=== PATIENT | male | born 1945 | race Caucasian/White ===

== ENCOUNTER 2024-02-12 12:51 | Outpatient (RCR) | payer MEDICARE, OTHER, SELFPAY | END 2024-02-12 23:59 | disposition home or self-care (01) | LOC: RPT 12:51 | PROVIDERS: ATTENDING PHYSICIAN Family Medicine | DX: I89.0 Lymphedema, not elsewhere classified (principal); M62.81 Muscle weakness (generalized); R26.2 Difficulty in walking, not elsewhere classified; Z91.81 History of falling; Z73.6 Limitation of activities due to disability | CPT/HCPCS: 97110; 97140; 97163; 97530 ==

== ENCOUNTER 2024-02-21 15:06 | Outpatient (RCR) | payer MEDICARE, OTHER, SELFPAY | END 2024-02-21 23:59 | disposition home or self-care (01) | LOC: RPT 15:06 | PROVIDERS: ATTENDING PHYSICIAN Family Medicine | DX: I89.0 Lymphedema, not elsewhere classified (principal); Z73.6 Limitation of activities due to disability; I69.354 Hemiplegia and hemiparesis following cerebral infarction affecting left non-dominant side | CPT/HCPCS: 97110; 97140; 97530 ==

== ENCOUNTER → 2024-05-11 08:22 | Outpatient (REF) | payer MEDICARE, OTHER, SELFPAY | LOC: RAD 08:22 | PROVIDERS: ATTENDING PHYSICIAN Internal Medicine Hematology & Oncology; FAMILY PHYSICIAN Family Medicine | DX: C61 Malignant neoplasm of prostate (principal) | CPT/HCPCS: 78306; A9503 ==

== ENCOUNTER → 2024-05-15 11:47 | Outpatient (REF) | payer MEDICARE, OTHER, SELFPAY | LOC: RAD 11:47 | PROVIDERS: ATTENDING PHYSICIAN Internal Medicine Hematology & Oncology; FAMILY PHYSICIAN Family Medicine | DX: C61 Malignant neoplasm of prostate (principal) | CPT/HCPCS: 71260; 74177; Q9967 ==

== ENCOUNTER 2025-01-19 09:58 | Emergency (ER) | payer MEDICARE, OTHER, SELFPAY ==
[2025-01-19 10:01] VITALS: BP 115/60
--- NOTE | 2025-01-19 11:04 | ED.GENMED ---
History of Present Illness
General
Chief Complaint: Fall
Source: patient
Exam Limitations: none
Time Seen by Provider: 01/19/25 10:23
Nursing documentation reviewed up to this point in time: agreed with
History of Present Illness
History of Present Illness:
Patient is a 79-year-old male with past medical history of stroke left-sided weakness on aspirin presents after fall. Patient reports he fell on a tile floor yesterday hit the left side of his head. He denies loss of consciousness. He did have
mild headache. He complaints of bruising around his left eye. He has no other complaints. He reports he has an old injury on his left elbow that is not new he does not with that evaluated. He does report he has some blurry vision however out of
his left eye that he noticed today
Past History
Past History
ED Past Medical History: HTN, Hypercholesterolemia and NIDDM (Diet-controlled); Negative CAD
ED Past Surgical History: Negative Cholecystectomy
Social History
Tobacco: Smoker
Alcohol: Occasional
Drug: None
Personal:
Living: with family
Employment: Retired
Family History
Family History: Hypertension and CAD
Phy Exam
General Physical Exam
General Presentation: no apparent distress
General age: appears stated age
General Skin: warm and dry
General Habitus: normal
General Mental: alert
General Hydration: appears well hydrated
ENT Exam
ENT Exam: EOMI
Eye Exam
Eye Exam: PERRL, EOMI and other (+ ecchymosis to left orbital region, no step offs ; no hyphema; no injection to eye exam of fluorescein no fluorescein uptake or corneal abrasion)
Eye Exam General: PERRL: bilateral and EOM intact: bilateral
Pupil Exam: Bilateral: round and reactive
Musculoskeletal Exam
Musculoskeletal Exam: full ROM and other (+ ecchymosis to left forehead region no c spine tendrness )
Skin Exam
Skin Exam: normal color and warm/dry
Course
Orders/Labs/Results
Orders:
Orders
01/19/25 10:06
CT Cervical Spine W/o Iv Contr Urgent
Comment: blurred vision to left eye
Reason For Exam: fall yesterday, left head strike, left eye injury
CT Head W/o Iv Contrast Urgent
Comment: blurred vision to left eye.
Reason For Exam: fall yesterday, left head strike, left eye injury
Facial Bones wo Contrast CT [CT Facial Bones W/o Iv Contras] Urgent
Comment: blurred vision to left eye
Reason For Exam: fall yesterday, left head strike, left eye injury
01/19/25 11:08
Visual Acuity- Treatment ONCE
01/19/25 12:21
Fluorescein Sodium [Ful-Daly] 2 mg .ROUTE .STK-MED ONE
Purified Water Eye Wash [Dacriose Eye Wash Solution] 120 ml .ROUTE .STK-MED ONE
Vital Signs
Initial and Last Documented VS:
Initial Vital Signs
Temp Pulse Resp BP Pulse Ox
98.2 F 83 18 115/60 99
01/19/25 10:01 01/19/25 10:01 01/19/25 10:01 01/19/25 10:01 01/19/25 10:01
Last Documented Vital Signs
Temp Pulse Resp BP Pulse Ox
98.2 F 83 18 115/60 99
01/19/25 10:01 01/19/25 10:01 01/19/25 10:01 01/19/25 10:01 01/19/25 11:08
MDM/Problems Addressed
Differential Diagnosis Includes:
Not limited to head injury to head injury,
MDM/Problems Addressed:
Patient is a 79-year-old male who fell yesterday hit his left thigh/head on tile floor no loss of consciousness. Patient is on aspirin only no other blood thinners. Patient complains of mild blurry vision and had a headache. He presents awake
alert with a neurologic exam. CT head facial bones and cervical spine all negative. Patient complains of mild blurriness from his left eye. On eye exam there is no injection pupils are equal round and reactive no step-offs, there is ecchymosis
around the orbit. There is no fluorescein dye uptake or abrasion noted. 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
Patient otherwise stable no acute distress
Chronic conditions affecting care:
History of previous stroke with left-sided weakness on aspirin
*Radiology
Radiology exam reviewed: radiology read reviewed
*Pulse Oximetry
SaO2: 99
Oxygen Mode of Delivery: Room air
Patient hypoxic: no
*Critical Care Note
Total Time (30-74mins, 75-104mins- exclusive of procedures): Not Applicable
ED Attending Note
-
Portions of this chart may have been created with voice recognition software.� Occasional wrong word or��sound alike� substitutions may have occurred due to the inherent limitations of voice recognition software.
Discharge Plan
Departure
Patient Disposition: Home (Routine Discharge)
Date of Disposition: 01/19/25
Time of Disposition: 12:16
Patient with high blood pressure during this ER visit?: No
Condition: Fair
Covid-19: Not Applicable
Discharge Problem:
Head injury, Contusion
Instructions: Head injury in adults, Contusion (DC)
Prescriptions:
No Action
allopurinol 100 MG tablet
PO DAILY
Patient Comments:
Pt. not sure of the strength of his meds
omega-3 acid ethyl esters [Lovaza] 1 GM capsule
2 tab PO BID
Simvastatin
1 tab PO DAILY
Referrals:
David Almendarez DO [Family Provider, Family Practice]
Activity Restrictions/Additional Instructions:
As discussed you may take Tylenol for pain and ice the affected area for the next 24 hours 20 minutes at a time several times a day. Please follow-up with family doctor the next 2 days and your eye doctor as scheduled today. Return if any
worsening of symptoms
Interventions
Interventions:
*Risk Screen - Suicide Last Done: 01/19/25 10:01
*General Assessment Last Done: 01/19/25 10:01
*Neglect/Abuse Screening Last Done: 01/19/25 10:01
*ED- Fall Risk Assessment Last Done: 01/19/25 12:31
*ED COVID-19 Vaccine History Last Done: 01/19/25 12:31
*Nursing Disposition Last Done: 01/19/25 12:31
ED-Musculoskeletal Assessment Last Done: 01/19/25 10:24
ED- Neurological Assessment Last Done: 01/19/25 10:24
ED-Skin Assessment Last Done: 01/19/25 10:24
Discharge Date and Time
Discharge Date/Time: 01/19/25 12:32
Print Language: MOLDOVAN
== END 2025-01-19 12:32 | disposition home or self-care (01) ==
LOC: EMR 09:58
PROVIDERS: EMERGENCY PHYSICIAN Emergency Medicine; FAMILY PHYSICIAN Family Medicine
DX: S09.90XA Unspecified injury of head, initial encounter (principal); S05.10XA Contusion of eyeball and orbital tissues, unspecified eye, initial encounter; W19.XXXA Unspecified fall, initial encounter; I69.354 Hemiplegia and hemiparesis following cerebral infarction affecting left non-dominant side; I10 Essential (primary) hypertension; E78.00 Pure hypercholesterolemia, unspecified; E11.9 Type 2 diabetes mellitus without complications; F17.200 Nicotine dependence, unspecified, uncomplicated; Z79.82 Long term (current) use of aspirin; Z82.49 Family history of ischemic heart disease and other diseases of the circulatory system; Z90.49 Acquired absence of other specified parts of digestive tract
CPT/HCPCS: 99284; 70450; 70486; 72125

== ENCOUNTER → 2025-04-05 13:52 | Outpatient (REF) | payer MEDICARE, OTHER, SELFPAY | LOC: RAD 13:52 | PROVIDERS: ATTENDING PHYSICIAN Family Medicine | DX: S60.222A Contusion of left hand, initial encounter (principal) | CPT/HCPCS: 73130 ==